=== PATIENT | male | born 1965 | race Caucasian/White ===

== ENCOUNTER 2022-08-15 10:10 | Inpatient (IN) | payer BC ==
[~2022-08-15] VITALS: Ht 172.7 cm; Wt 88.5 kg
[2022-08-15] MEDS ORDERED: IV NORMAL SALINE 1000 ML BAG IV ONE (10:15)
[2022-08-15] MEDS ORDERED: CYMBALTA (10:26)
[2022-08-15] MEDS ORDERED: FLOMAX (10:26)
[2022-08-15] MEDS ORDERED: SENSIPAR (10:26)
[2022-08-15] MEDS ORDERED: COZAA (10:26)
[2022-08-15] MEDS ORDERED: METOPROLOL (10:26)
[2022-08-15] MEDS ORDERED: LAMICTAL (10:26)
[2022-08-15] MEDS ORDERED: GABAPENTIN (10:26)
[2022-08-15] MEDS ORDERED: AMLODIPINE (10:26)
[2022-08-15] MEDS ORDERED: AVODART (10:26)
[2022-08-15] MEDS ORDERED: ROBAXIN (10:26)
[2022-08-15] MEDS ORDERED: LIPITOR (10:26)
[2022-08-15] MEDS ORDERED: PERCOCET (10:26)
[2022-08-15 10:36] LABS: HEMATOCRIT 41.2 % (36.7-47.1); MEAN CORPUSCULAR VOLUME 91.7 fL (73.0-96.2); PLATELET COUNT (AUTO) 370 K/uL (152-348)
[2022-08-15 10:46] LABS: CARBON DIOXIDE 23 mmol/L (21-32); CHLORIDE 101 mmol/L (98-107); CREATININE 1.6 mg/dL (0.6-1.3); GLUCOSE 119 mg/dL (74-106); POTASSIUM 3.9 mmol/L (3.5-5.1); UREA NITROGEN, BLOOD 39 mg/dL (7-18)
[2022-08-15 11:30] LABS: ALANINE AMINOTRANSFERASE 35 U/L (16-63); ALKALINE PHOSPHATASE 98 U/L (50-136); ASPARTATE AMINOTRANSFERASE 9 U/L (15-37); BILIRUBIN,DIRECT < 0.1 mg/dL (0.0-0.2); BILIRUBIN,TOTAL 0.4 mg/dL (0.2-1.0); TOTAL PROTEIN, SERUM 7.1 g/dL (6.4-8.2)
[2022-08-15] MEDS ORDERED: HYDROMORPHONE 1 MG/1 ML DISP.SYRIN ONE ×2 (12:40→15:43)
[2022-08-15] MEDS ORDERED: ONDANSETRON 4 MG/2 ML VIAL ONE ×2 (12:41→15:43)
[2022-08-15] MEDS ORDERED: ONDANSETRON 4 MG/2 ML VIAL IV ONE (12:45)
[2022-08-15] MEDS ORDERED: HYDROMORPHONE 1 MG/1 ML DISP.SYRIN IV ONE ×2 (12:45→13:30)
[2022-08-15] MEDS ORDERED: MIDAZOLAM HCL 2 MG/2 ML VIAL IV ONE (13:30)
[2022-08-15] MEDS ORDERED: KETAMINE HCL 500 MG/10 ML INJ IV ONE (13:30)
[2022-08-15] MEDS ORDERED: KETAMINE HCL 500 MG/10 ML INJ ONE (13:34)
[2022-08-15] MEDS ORDERED: MIDAZOLAM HCL 2 MG/2 ML VIAL ONE (13:35)
[2022-08-15 16:32] LABS: *BILIRUBIN,URIN NEGATIVE (NEGATIVE); *BLOOD, URINE NEGATIVE (NEGATIVE); *CLARITY,URINE CLEAR (CLEAR); *COLOR,URINE YELLOW (YELLOW); *KETONES,URINE NEGATIVE (NEGATIVE); *UROBILINOGEN,URINE 0.2 E.U./dl (NORMAL); LEUKOCYTE ESTERASE ,URINE NEGATIVE (NEGATIVE); NITRITE, URINE NEGATIVE (NEGATIVE); PH,URINE 5.5 (5.0-8.0); UGLUCOSE NEGATIVE (NEGATIVE)
[2022-08-15] MEDS ORDERED: DULO60CA45 PO (17:06)
[2022-08-15] MEDS ORDERED: METH-806 PO (17:06)
[2022-08-15] MEDS ORDERED: AMLO2.5T4 PO (17:06)
[2022-08-15] MEDS ORDERED: LAMO100T2 PO (17:06)
[2022-08-15] MEDS ORDERED: CINA30TA2 PO (17:06)
[2022-08-15] MEDS ORDERED: TAMS-3 PO (17:06)
[2022-08-15] MEDS ORDERED: TIZA4TAB11 PO (17:06)
[2022-08-15] MEDS ORDERED: DUTA0.5C PO (17:06)
[2022-08-15] MEDS ORDERED: ATOR20TA PO (17:06)
[2022-08-15] MEDS ORDERED: OXYC-128 PO (17:06)
[2022-08-15] MEDS ORDERED: METO200T3 PO (17:06)
[2022-08-15] MEDS ORDERED: GABA300C PO (17:06)
[2022-08-15] MEDS ORDERED: TEMAZEPAM 15 MG CAPSULE PO PRN (19:15)
[2022-08-15] MEDS ORDERED: ACETAMINOPHEN 325 MG TABLET PO PRN (19:15)
[2022-08-15] MEDS ORDERED: MAGNESIUM HYDROXIDE 30 ML LIQUID UDC PO PRN (19:15)
[2022-08-15] MEDS ORDERED: ONDANSETRON 4 MG/2 ML VIAL IV PRN (19:15)
[2022-08-15] MEDS ORDERED: TIZANIDINE HCL 4 MG TABLET PO PRN (19:15)
[2022-08-15 20:00] VITALS: BP 137/90
[2022-08-15] MEDS: LAMOTRIGINE 100 MG TABLET PO SCH (20:14)
[2022-08-15] MEDS: GABAPENTIN 300 MG CAPSULE PO SCH (20:14)
[2022-08-15] MEDS: HYDROMORPHONE 1 MG/1 ML DISP.SYRIN IV PRN ×2 (20:14→23:19)
[2022-08-15] MEDS: DUTASTERIDE 0.5 MG CAPSULE PO SCH (20:18)
[2022-08-15] MEDS: ATORVASTATIN 20 MG TABLET PO SCH (20:18)
[2022-08-15] MEDS: TAMSULOSIN HCL 0.4 MG CAP.SR.24H PO SCH (20:18)
[2022-08-15] MEDS ORDERED: DOCUSATE SODIUM 250 MG CAPSULE PO SCH (21:00)
[2022-08-15] MEDS: IV NS 1000 ML 1,000 ML IV PRN (21:52)
[2022-08-16] VITALS: BP 132/68
[2022-08-16 04:00] VITALS: BP 128/72
[2022-08-16] MEDS: PANTOPRAZOLE SODIUM 40 MG TABLET.DR PO SCH (06:36)
[2022-08-16 06:52] LABS: HEMATOCRIT 39.5 % (36.7-47.1); MEAN CORPUSCULAR HEMOGLOBIN 30.2 uug (23.8-33.4); MEAN CORPUSCULAR VOLUME 92.5 fL (73.0-96.2); PLATELET COUNT (AUTO) 293 K/uL (152-348)
[2022-08-16 07:11] LABS: BILIRUBIN,TOTAL 0.4 mg/dL (0.2-1.0); CREATININE 1.4 mg/dL (0.6-1.3); MAGNESIUM 1.8 mg/dL (1.8-2.4); PHOSPHOROUS 4.4 mg/dL (2.5-4.9); POTASSIUM 4.6 mmol/L (3.5-5.1); TOTAL PROTEIN, SERUM 6.7 g/dL (6.4-8.2)
[2022-08-16] MEDS: CINACALCET HCL 30 MG TABLET PO SCH (08:12)
[2022-08-16] MEDS: GABAPENTIN 300 MG CAPSULE PO SCH ×3 (08:12→16:58)
[2022-08-16] MEDS: HYDROMORPHONE 1 MG/1 ML DISP.SYRIN IV PRN ×4 (08:13→23:21)
[2022-08-16] MEDS: LAMOTRIGINE 100 MG TABLET PO SCH ×2 (09:00→17:29)
[2022-08-16] MEDS ORDERED: DULOXETINE 60 MG CAPSULE.DR PO SCH ×2 (09:00→21:00)
[2022-08-16] MEDS ORDERED: HYDROMORPHONE 1 MG/1 ML DISP.SYRIN IV ONE (10:30)
[2022-08-16 12:00] VITALS: BP 122/81
[2022-08-16] MEDS: IV NS 1000 ML 1,000 ML IV PRN (14:25)
[2022-08-16 16:21] VITALS: BP 103/62
[2022-08-16 16:24] LABS: *BILIRUBIN,URIN NEGATIVE (NEGATIVE); *CLARITY,URINE CLEAR (CLEAR); *COLOR,URINE YELLOW (YELLOW); *KETONES,URINE NEGATIVE (NEGATIVE); *UROBILINOGEN,URINE 0.2 E.U./dl (NORMAL); LEUKOCYTE ESTERASE ,URINE NEGATIVE (NEGATIVE); NITRITE, URINE NEGATIVE (NEGATIVE); PH,URINE 5.5 (5.0-8.0); UGLUCOSE NEGATIVE (NEGATIVE)
[2022-08-16 16:27] LABS: *BLOOD, URINE TRACE (NEGATIVE)
[2022-08-16 16:34] LABS: *CREATININE,URINE 47.9 mg/dL (30-125); *URINE TOTAL PROTEIN RANDOM 10.4 mg/dL (<150/24HR)
[2022-08-16 16:40] LABS: BACTERIA,URINE NONE SEEN /HPF (NONE SEEN); RBC,URINE 0-3 /HPF (0-3); SQUAMOUS EPITHELIAL CELL,UR FEW /HPF (NONE SEEN); WBC,URINE 0-3 /HPF (0-3)
[2022-08-16] MEDS ORDERED: predniSONE 20 MG TABLET PO ONE (19:00)
[2022-08-16 20:01] VITALS: BP 95/62
[2022-08-16] MEDS: TAMSULOSIN HCL 0.4 MG CAP.SR.24H PO SCH (20:20)
[2022-08-16] MEDS: ATORVASTATIN 20 MG TABLET PO SCH (20:20)
[2022-08-16] MEDS: DUTASTERIDE 0.5 MG CAPSULE PO SCH (20:20)
[2022-08-16] MEDS ORDERED: DOCUSATE SODIUM 100 MG CAPSULE PO SCH (21:00)
[2022-08-17] MEDS: IV NS 1000 ML 1,000 ML IV PRN (04:03)
[2022-08-17] MEDS: HYDROMORPHONE 1 MG/1 ML DISP.SYRIN IV PRN ×4 (05:12→15:48)
[2022-08-17] MEDS: PANTOPRAZOLE SODIUM 40 MG TABLET.DR PO SCH (06:06)
[2022-08-17 06:30] VITALS: BP 135/87
[2022-08-17 07:10] LABS: HEMATOCRIT 38.6 % (36.7-47.1); MEAN CORPUSCULAR HEMOGLOBIN 30.3 uug (23.8-33.4); MEAN CORPUSCULAR VOLUME 92.1 fL (73.0-96.2); PLATELET COUNT (AUTO) 297 K/uL (152-348)
[2022-08-17 07:35] LABS: BILIRUBIN,TOTAL 0.3 mg/dL (0.2-1.0); CREATININE 1.4 mg/dL (0.6-1.3); MAGNESIUM 1.8 mg/dL (1.8-2.4); PHOSPHOROUS 3.3 mg/dL (2.5-4.9); POTASSIUM 4.6 mmol/L (3.5-5.1); TOTAL PROTEIN, SERUM 6.8 g/dL (6.4-8.2)
[2022-08-17] MEDS: CINACALCET HCL 30 MG TABLET PO SCH (09:10)
[2022-08-17] MEDS: LAMOTRIGINE 100 MG TABLET PO SCH ×2 (09:10→16:30)
[2022-08-17] MEDS: GABAPENTIN 300 MG CAPSULE PO SCH ×3 (09:10→16:29)
[2022-08-18 13:06] LABS: A/G RATIO 0.9 (0.7-1.7); ALBUMIN 2.9 g/dL (2.9-4.4); ALPHA-1-GLOBULIN 0.3 g/dL (0.0-0.4); BETA GLOBULIN 1.3 g/dL (0.7-1.3); GAMMA GLOBULIN 0.9 g/dL (0.4-1.8); GLOBULIN, TOTAL 3.4 g/dL (2.2-3.9); M-SPIKE Not Observed g/dL (Not Observed)
== END 2022-08-17 16:35 | disposition home health service (06) | DRG 551 ==
LOC: ER 10:10 → TELE3 15:10 → MEDSURG3 08-16 19:26
PROVIDERS: ADMIT Internal Medicine; ATTEND Internal Medicine
DX: M51.16 Intervertebral disc disorders with radiculopathy, lumbar region (principal); N17.0 Acute kidney failure with tubular necrosis; M96.842 Postprocedural seroma of a musculoskeletal structure following a musculoskeletal system procedure; N25.81 Secondary hyperparathyroidism of renal origin; I95.2 Hypotension due to drugs; G89.18 Other acute postprocedural pain; R55 Syncope and collapse; E86.0 Dehydration; M25.552 Pain in left hip; D72.829 Elevated white blood cell count, unspecified; F31.9 Bipolar disorder, unspecified; E66.8 Other obesity; Z68.29 Body mass index [BMI] 29.0-29.9, adult; E78.5 Hyperlipidemia, unspecified; E11.65 Type 2 diabetes mellitus with hyperglycemia; Z88.0 Allergy status to penicillin; N40.0 Benign prostatic hyperplasia without lower urinary tract symptoms; Z98.1 Arthrodesis status; M48.061 Spinal stenosis, lumbar region without neurogenic claudication; X50.9XXA Other and unspecified overexertion or strenuous movements or postures, initial encounter; W18.39XA Other fall on same level, initial encounter; Y92.89 Other specified places as the place of occurrence of the external cause; M50.30 Other cervical disc degeneration, unspecified cervical region; N18.30 Chronic kidney disease, stage 3 unspecified; T43.595A Adverse effect of other antipsychotics and neuroleptics, initial encounter; I51.89 Other ill-defined heart diseases; Z20.822 Contact with and (suspected) exposure to COVID-19
CPT/HCPCS: 36415; 71045; 72148; 73502; 73551; 73700; 83605; 83735; 83970; 84100; 84155; 84156; 84165; 84300; 84484; 85025; 87040; 93307; 99082-TC; A4663; G0378; G0500; J1170; J2250; J2405; J3490; J7040; J7512